=== PATIENT | male | born 2000 | race Caucasian/White ===

== ENCOUNTER 2022-11-30 20:41 | Inpatient (IN) ==
--- NOTE | 2022-11-30 21:08 | Emergency Department Note ---
Impression & Plan Suicidal ideation ED Provider Note NAME: ROLDAN Salvador O AGE: 22 SEX: M : 2000 ARRIVES VIA: [employer] INFORMANT: [Patient] ED PROVIDER(S): [Faraz Stearns MD] CHIEF COMPLAINT: Mental health evaluation HISTORY OF PRESENT ILLNESS: The patient is a 22-year-old male who was brought by police for a mental health evaluation. The patient has an appointment with his psychologist tomorrow. He sent some emails to the psychologist today indicating that he wanted to kill himself. The patient states that it was a poor choice of words as he just feels hopeless and feels like nothing seems to be helping him. He does not have any intent to harm himself though, he has no plan. Patient states that he is upset that his psychologist called the police since he was under the impression that the emails were confidential. The patient admits that he is using Klonopin now for anxiety. He did stop his daily depression/anxiety medication a few weeks ago. He is using the Klonopin as as needed. The patient does not want to stay in the hospital. He does not believe he needs inpatient care. There has been no cough cold or congestion. No fever or chills. Patient denies any increased stressors other than the fact that he stopped his regular prescribed daily medications a few weeks ago. He has an appointment to see a psychiatrist in a week. He did contact [facility]. The patient plans on going home tonight to play video games and rest and then see his psychologist tomorrow as scheduled. PMHx/PSHx: See Below SOCIAL HISTORY: See Below. PHYSICAL EXAM: GENERAL: Patient is in no acute distress. HEENT: No acute trauma, normocephalic atraumatic, mucous membranes moist, no nasal congestion. NECK: No stridor, no adenopathy, no meningismus, trachea is midline. LUNGS: Clear to auscultation bilaterally, no wheeze, no rhonchi, breath sounds equal. HEART: Without murmurs gallops or rubs, regular rate and rhythm. ABDOMEN: Soft, nontender, bowel sounds positive, no peritonitis. EXTREMITIES: No cyanosis or edema, full range of motion of all the joints without pain or difficulty, no signs for acute trauma. NEUROLOGIC: Oriented x 3, no acute motor or sensory deficits, no focal weakness. SKIN: No rash, no jaundice, no diaphoresis. Psychiatric: Flat affect, admits to sending emails talking about killing himself, adamant that he has no plan to harm himself or intent to harm himself. DIFFERENTIAL DIAGNOSIS: Psychosis, depression, anxiety, suicidality, electrolyte imbalance, infection, among others. EMERGENCY DEPARTMENT COURSE/PROCEDURES: Prior/Outside records reviewed: None MEDICAL DECISION MAKING: There is no leukocytosis or concerning anemia. There is a normal platelet count. No renal failure or significant electrolyte abnormality. No concerning liver enzyme elevation. The patient appeared to be in a euthyroid state. Urinalysis did not show findings of infection. Aspirin, Tylenol and alcohol levels were undetectable. Urine tox was negative. COVID test was negative. On exam, the patient admitted to some suicidal ideation but denied intent. He had a flattened affect. He admitted to feeling hopeless. The patient was felt medically clear. He was seen by psychiatry case management. The patient could not plan for safety. A 302 petition was initiated by psychiatry case management. I did sign the medical portion as I do think the patient is at risk for self-harm. He is unable to plan for safety and things have escalated to the point where he was sending emails to his psychologist today talking about suicide. Patient received oral Ativan and oral hydroxyzine. He then received a dose of oral Haldol and oral Ativan. The medications given were to help with his anxiety and to help with sleep/rest. Patient is being evaluated by our psychiatry service, [facility] He may qualify for admission to this facility. At the present time, the patient's disposition is pending. The case has been assumed by Dr. Chand at the change of shift. DISPOSITION: Currently still an ED patient. Past Med/Surg History Medical History Depression Social History Smoking Status: Never smoker Feels Safe at Home: Yes Gender Identity: Male Results & Data (ED) Vital Signs Vital Signs - 24 hr 11/30/22 20:29 11/30/22 21:35 Temperature 36.8 C Temperature Source Oral Pulse Rate [Finger] 100 H Respiratory Rate 16 Blood Pressure [Left Arm] 130/76 Blood Pressure Mean [Left Arm] 94 Pulse Oximetry 96 Sepsis New/Unexplained Change in Mental Status No Sepsis Action Taken by Nursing No Action Required Home Medications Current Medication List: was personally reviewed by me Laboratory Data Attestation: I reviewed the patient's lab results. 11/30/22 21:28 11/30/22 21:28 Lab Results 11/30/22 11/30/22 11/30/22 Range/Units 21:28 21:28 21:28 WBC 7.30 (4.8-10.8) K/ul RBC 5.45 (4.70-6.10) M/uL Hgb 16.0 (14.0-18.0) g/dl Hct 45.0 (42.0-52.0) % MCV 82.6 (80.0-100.0) fL MCH 29.4 (25.0-34.0) pg MCHC 35.6 (32.0-36.0) g/dL RDW Std Deviation 36.3 L (36.4-46.3) fL RDW Coeff of Deepak 12.1 (11.5-14.5) % Plt Count 246 (130-400) K/uL MPV 10.1 (9.4-12.4) fL Immature Gran % (Auto) 0.4 % Neut % (Auto) 61.0 % Lymph % (Auto) 28.4 % [place] % (Auto) 8.6 % Eos % (Auto) 1.2 % Baso % (Auto) 0.4 % Neut # (Auto) 4.45 (1.40-6.50) K/uL Lymph # (Auto) 2.07 (1.2-3.4) K/uL [place] # (Auto) 0.63 H (0.11-0.59) K/uL Eos # (Auto) 0.09 (0-0.50) K/uL Baso # (Auto) 0.03 (0-0.2) K/uL Immature Gran # (Auto) 0.03 (0.01-0.20) K/uL Sodium 139 (136-145) mmol/L Potassium 4.1 (3.5-5.1) mmol/L Chloride 106 (98-107) mmol/L Carbon Dioxide 27 (21-32) mmol/L Anion Gap 6 (3-11) BUN 12 (6-23) mg/dl Creatinine 0.85 (0.6-1.4) mg/dl Est Cr Clr Drug Dosing 126.8 ml/min Est GFR ( Amer) 141.3 ml/min Est GFR (Non-Af Amer) 122.0 ml/min BUN/Creatinine Ratio 14.1 (10-20) Glucose 119 H (70-99(Fasting)) mg/dl Calcium 9.1 (8.6-10.3) mg/dl Total Bilirubin 0.4 (0.2-1.0) mg/dl AST 28 (13-39) U/L ALT 23 (7-52) U/L Alkaline Phosphatase 96 (34-104) U/L Total Protein 6.7 (6.0-8.3) gm/dl Albumin 4.3 (3.4-5.0) gm/dl Globulin 2.4 L (2.5-4.0) gm/dl Albumin/Globulin Ratio 1.8 (0.9-2) TSH 3.823 (0.300-4.500) uIu/ml Urine Color Urine Appearance (Clear) Urine pH (4.5-7.5) Ur Specific [place] (1.000-1.030) Urine Protein (Negative) Urine Glucose (UA) (Negative) Urine Ketones (Negative) Urine Blood (Negative) Urine Nitrite (Negative) Urine Bilirubin (Negative) Urine Urobilinogen (Negative) Ur Leukocyte Esterase (Negative) Salicylates (3.0-30) mg/dl Urine Opiates Screen (Neg) Ur Methadone, Qual (Neg) Acetaminophen (10-30) ug/ml Urine Barbiturates (Neg) Ur Phencyclidine (PCP) (Neg) U Amphetamin/Meth Scrn (Neg) MDMA (Ecstasy) Screen (Neg) U Benzodiazepines Scrn (Neg) Ur Cocaine Metabolite (Neg) U Marijuana (THC) Screen (Neg) Ethyl Alcohol mg/dL (<10.0) mg/dl SARS-CoV-2, RNA, NAAT (NEGATIVE) 11/30/22 11/30/22 11/30/22 Range/Units 21:28 21:28 21:28 WBC (4.8-10.8) K/ul RBC (4.70-6.10) M/uL Hgb (14.0-18.0) g/dl Hct (42.0-52.0) % MCV (80.0-100.0) fL MCH (25.0-34.0) pg MCHC (32.0-36.0) g/dL RDW Std Deviation (36.4-46.3) fL RDW Coeff of Deepak (11.5-14.5) % Plt Count (130-400) K/uL MPV (9.4-12.4) fL Immature Gran % (Auto) % Neut % (Auto) % Lymph % (Auto) % [place] % (Auto) % Eos % (Auto) % Baso % (Auto) % Neut # (Auto) (1.40-6.50) K/uL Lymph # (Auto) (1.2-3.4) K/uL [place] # (Auto) (0.11-0.59) K/uL Eos # (Auto) (0-0.50) K/uL Baso # (Auto) (0-0.2) K/uL Immature Gran # (Auto) (0.01-0.20) K/uL Sodium (136-145) mmol/L Potassium (3.5-5.1) mmol/L Chloride (98-107) mmol/L Carbon Dioxide (21-32) mmol/L Anion Gap (3-11) BUN (6-23) mg/dl Creatinine (0.6-1.4) mg/dl Est Cr Clr Drug Dosing ml/min Est GFR ( Amer) ml/min Est GFR (Non-Af Amer) ml/min BUN/Creatinine Ratio (10-20) Glucose (70-99(Fasting)) mg/dl Calcium (8.6-10.3) mg/dl Total Bilirubin (0.2-1.0) mg/dl AST (13-39) U/L ALT (7-52) U/L Alkaline Phosphatase (34-104) U/L Total Protein (6.0-8.3) gm/dl Albumin (3.4-5.0) gm/dl Globulin (2.5-4.0) gm/dl Albumin/Globulin Ratio (0.9-2) TSH (0.300-4.500) uIu/ml Urine Color Urine Appearance (Clear) Urine pH (4.5-7.5) Ur Specific [place] (1.000-1.030) Urine Protein (Negative) Urine Glucose (UA) (Negative) Urine Ketones (Negative) Urine Blood (Negative) Urine Nitrite (Negative) Urine Bilirubin (Negative) Urine Urobilinogen (Negative) Ur Leukocyte Esterase (Negative) Salicylates < 3.0 L (3.0-30) mg/dl Urine Opiates Screen (Neg) Ur Methadone, Qual (Neg) Acetaminophen < 3 L (10-30) ug/ml Urine Barbiturates (Neg) Ur Phencyclidine (PCP) (Neg) U Amphetamin/Meth Scrn (Neg) MDMA (Ecstasy) Screen (Neg) U Benzodiazepines Scrn (Neg) Ur Cocaine Metabolite (Neg) U Marijuana (THC) Screen (Neg) Ethyl Alcohol mg/dL < 10.0 (<10.0) mg/dl SARS-CoV-2, RNA, NAAT NEGATIVE (NEGATIVE) 11/30/22 11/30/22 Range/Units 22:38 22:38 WBC (4.8-10.8) K/ul RBC (4.70-6.10) M/uL Hgb (14.0-18.0) g/dl Hct (42.0-52.0) % MCV (80.0-100.0) fL MCH (25.0-34.0) pg MCHC (32.0-36.0) g/dL RDW Std Deviation (36.4-46.3) fL RDW Coeff of Deepak (11.5-14.5) % Plt Count (130-400) K/uL MPV (9.4-12.4) fL Immature Gran % (Auto) % Neut % (Auto) % Lymph % (Auto) % [place] % (Auto) % Eos % (Auto) % Baso % (Auto) % Neut # (Auto) (1.40-6.50) K/uL Lymph # (Auto) (1.2-3.4) K/uL [place] # (Auto) (0.11-0.59) K/uL Eos # (Auto) (0-0.50) K/uL Baso # (Auto) (0-0.2) K/uL Immature Gran # (Auto) (0.01-0.20) K/uL Sodium (136-145) mmol/L Potassium (3.5-5.1) mmol/L Chloride (98-107) mmol/L Carbon Dioxide (21-32) mmol/L Anion Gap (3-11) BUN (6-23) mg/dl Creatinine (0.6-1.4) mg/dl Est Cr Clr Drug Dosing ml/min Est GFR ( Amer) ml/min Est GFR (Non-Af Amer) ml/min BUN/Creatinine Ratio (10-20) Glucose (70-99(Fasting)) mg/dl Calcium (8.6-10.3) mg/dl Total Bilirubin (0.2-1.0) mg/dl AST (13-39) U/L ALT (7-52) U/L Alkaline Phosphatase (34-104) U/L Total Protein (6.0-8.3) gm/dl Albumin (3.4-5.0) gm/dl Globulin (2.5-4.0) gm/dl Albumin/Globulin Ratio (0.9-2) TSH (0.300-4.500) uIu/ml Urine Color Yellow Urine Appearance Clear (Clear) Urine pH 8.5 H (4.5-7.5) Ur Specific [place] 1.014 (1.000-1.030) Urine Protein Negative (Negative) Urine Glucose (UA) Negative (Negative) Urine Ketones Negative (Negative) Urine Blood Negative (Negative) Urine Nitrite Negative (Negative) Urine Bilirubin Negative (Negative) Urine Urobilinogen Negative (Negative) Ur Leukocyte Esterase Negative (Negative) Salicylates (3.0-30) mg/dl Urine Opiates Screen Neg (Neg) Ur Methadone, Qual Neg (Neg) Acetaminophen (10-30) ug/ml Urine Barbiturates Neg (Neg) Ur Phencyclidine (PCP) Neg (Neg) U Amphetamin/Meth Scrn Neg (Neg) MDMA (Ecstasy) Screen Neg (Neg) U Benzodiazepines Scrn Neg (Neg) Ur Cocaine Metabolite Neg (Neg) U Marijuana (THC) Screen Neg (Neg) Ethyl Alcohol mg/dL (<10.0) mg/dl SARS-CoV-2, RNA, NAAT (NEGATIVE) Administered Medications Discontinued Medications Haloperidol (Haloperidol 5 Mg Tab) 5 mg PO NOW STA Stop: 12/01/22 00:46 Last Admin: 12/01/22 00:55 Dose: 5 mg Documented By: AB Hydroxyzine HCl (Hydroxyzine Hcl 25 Mg Tab) 50 mg PO NOW STA Stop: 11/30/22 23:27 Last Admin: 11/30/22 23:32 Dose: 50 mg Documented By: AB Lorazepam (Lorazepam 1 Mg Tab) 2 mg SL NOW STA Stop: 11/30/22 22:44 Last Admin: 11/30/22 22:49 Dose: 2 mg Documented By: KELLY Lorazepam (Lorazepam 1 Mg Tab) 1 mg SL NOW STA Stop: 12/01/22 00:46 Last Admin: 12/01/22 00:55 Dose: 1 mg Documented By: Discharge Plan Visit Data Chief Complaint: Mental Health Evaluation Stated Complaint: 201 ED Provider: Faraz Stearns Discharge Problem: Suicidal ideation Patient Disposition: Still a Patient Condition: Good Forms Stand Alone Forms: My [facility], Suicide Prevention Resources Referrals Referrals: PCP,NO [Physician] -
[2022-11-30 22:04] LABS: Basophils # (auto) 0.03 K/uL (0-0.2); Basophils % (auto) 0.4 %; Eosinophils # (auto) 0.09 K/uL (0-0.50); Eosinophils % (auto) 1.2 %; Immature Granulocytes # (auto) 0.03 K/uL (0.01-0.20); Immature Granulocytes % (auto) 0.4 %; Lymphocytes # (auto) 2.07 K/uL (1.2-3.4); Lymphocytes % (auto) 28.4 %; Mean Corpuscular Hemoglobin 29.4 pg (25.0-34.0); Mean Corpuscular Hgb Conc 35.6 g/dL (32.0-36.0); Mean Corpuscular Volume 82.6 fL (80.0-100.0); Mean Platelet Volume 10.1 fL (9.4-12.4); Monocytes # (auto) 0.63 K/uL (0.11-0.59); Monocytes % (auto) 8.6 %; Neutrophils # (auto) 4.45 K/uL (1.40-6.50); Platelet Count 246 K/uL (130-400); RDW Coefficient of Variation 12.1 % (11.5-14.5); RDW Standard Deviation 36.3 fL (36.4-46.3); Red Blood Count 5.45 M/uL (4.70-6.10)
[2022-11-30 22:10] LABS: Albumin Globulin Ratio 1.8 (0.9-2); Albumin Level 4.3 gm/dl (3.4-5.0); BUN Creatinine Ratio 14.1 (10-20); Bilirubin,Total 0.4 mg/dl (0.2-1.0); Calcium 9.1 mg/dl (8.6-10.3); Creatinine Clr Calc Pharmacy 126.8 ml/min; Est GFR (African American) 141.3 ml/min; Globulin 2.4 gm/dl (2.5-4.0); Potassium 4.1 mmol/L (3.5-5.1); Total Protein 6.7 gm/dl (6.0-8.3)
[2022-11-30 22:24] LABS: Acetaminophen < 3 ug/ml (10-30); Salicylate < 3.0 mg/dl (3.0-30)
[2022-11-30] MEDS ORDERED: LORazepam 1 MG TAB SL STA (22:43)
[2022-11-30 23:17] LABS: Appearance Urine Clear (Clear); Bilirubin Urine Negative (Negative); Blood Urine Negative (Negative); Color Urine Yellow; Glucose Urine UA Negative (Negative); Ketones Urine Negative (Negative); Leukocyte Esterase Urine Negative (Negative); Nitrite Urine Negative (Negative); Protein Urine Negative (Negative); Specific Gravity Urine 1.014 (1.000-1.030); Urobilinogen Urine Negative (Negative); pH Urine 8.5 (4.5-7.5)
[2022-11-30] MEDS ORDERED: hydrOXYzine HCl 25 MG TAB PO STA (23:26)
[2022-11-30 23:39] LABS: Amphetamines+Metham, Urine Neg (Neg); Barbiturates, Urine Neg (Neg); Benzodiazepine, Urine Neg (Neg); Cocaine, Urine Neg (Neg); MDMA (Ecstacy), Urine Neg (Neg); Methadone, Urine Neg (Neg); Opiate, Urine Neg (Neg); Phencyclidine, Urine Neg (Neg)
[2022-12-01] MEDS ORDERED: haloperidoL 5 MG TAB PO STA (00:45)
[2022-12-01] MEDS ORDERED: LORazepam 1 MG TAB SL STA (00:45)
--- NOTE | 2022-12-01 02:01 | Emergency Department Note ---
ED Visit Note Date and Time: 12/01/2022 0130 Interval History: Sign out received from Dr. Stearns who reviewed details of the encounter. Patient was pending inpatient admission on a 302. Patient was evaluated by the ED psychiatric leather case finisher. [facility] staff have also evaluated the patient for bed placement Disposition: The patient has been accepted to [facility] is an involuntary commitment .
[2022-12-01] MEDS ORDERED: ALUMINUM/MAGNESIUM SUSP 30 ML UDC PO PRN (03:53)
[2022-12-01] MEDS ORDERED: SODIUM CHLORIDE 0.65% NA SOLN 45 ML (OCEAN) PRN (03:53)
[2022-12-01] MEDS ORDERED: ACETAMINOPHEN 325 MG TAB PO PRN (03:53)
[2022-12-01] MEDS ORDERED: hydrOXYzine HCl 25 MG TAB PO PRN (03:53)
[2022-12-01] MEDS ORDERED: MAGNESIUM HYDROXIDE SUSP 30 ML UDC PO PRN (03:53)
[2022-12-01] MEDS ORDERED: BISMUTH SUBSALICYLATE LIQD 236 ML PO PRN (03:53)
[2022-12-01] MEDS: Patient's ALLERGY Info needs ENTERED SCH ×4 (04:44→04:56)
--- NOTE | 2022-12-01 16:36 | History & Physical ---
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 Diagnostically consistent with major depressive disorder with anxious distress as well as possible OCD component vs ruminations and likely cluster B traits. He is deemed in need of psychiatric hospitalization for diagnostic clarification, safety and stabilization, medication management and development of further coping skills. Discussed medication treatment options in detail including SSRI, SNRI, antipsychotics, Wellbutrin. Discussed risks, benefits and alternatives. Patient would like to start and consented to Wellbutrin for depression. Reviewed side effects including but not limited to: elevated HR, elevated BP, lowered seizure threshold, weight loss, insomnia and counseled on black box warning of potential for emergence of or increased SI and need to let staff know should this occur or should they feel unsafe. Also discussed importance of seeking emergency care fo llowing discharge if this side effect occurs in the future. MNPR due to significant psychic distress in the ED and ongoing social isolation/not felt able to tolerate a roommate (1) Recurrent severe major depressive disorder with anxiety: (2) Suicidal ideation: Plan 12/01/2022: The patient was admitted to the [facility] ([facility]) on q15 min checks (behavioral with suicide precautions) for safety. The patient will participate in group, recreational, and milieu therapies and will be offered additional individual and family sessions as clinically appropriate. -Start Wellbutrin XL 150mg qd tomorrow Inventory Assets Strengths: supportive relationships, outpatient therapy, housing, student life coordinator Needs: safety and stabilization, medication adjustment, additional coping skills Suicide Risk Level Suicide Risk Level: High-Moderate (q15 min suicide checks) (severe depression with SI prior to admission but feels safe in the hospital, able to safety contract and agrees to let nursing/staff know should they develop plan, intent or feel unable to remain safe.) Suicide Risk Level Comments: Risk Factors Assessment Male: Yes : No Do You Have Access To A Gun?: No Health Problems: No Mental Health Diagnoses: Yes Substance Use Disorders: No Previous Attempt: No Family History of Suicide: Yes Previous Psychiatric Hospitalization: No Hopelessness: Yes Protective Factors Assessment Employed: No Stable Relationships: Yes Supportive Family: Yes Good Rapport with Provider: Yes Psychiatric History Identifying Data ROLDAN ADAMSON is a 22-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 Chief Complaint "I tried to be as clear as possible that I'm in intense agony and I can't live like this so I used explicit language". History of Present Illness Roldan presented to the hospital via police after emailing his psychologist concerning statements regarding suicidal ideation and intent. Apparently the emails he sent stated: "had the most intense day. Can't do it anymore. Having strong urges to kill himself and desperate" and another stating "I need to kill myself". He describes a long history of depression that has worsened over the last few months with anhedonia, decreased motivation, helplessness, hopelessness, decreased energy, increased sleep, and poor concentration. He experiences chronic SI and states if he could "push a button and I would" but expands that "I would love to kill myself but I can't do that to my family and I won't ever". He also describes a lot of ruminations about a past girlfriend who broke up with him three years ago. He feels like until he can move past this he will never feel better. He identifies stressors including not being able to practice Cello enough due to his difficulty getting out of bed in the morning and low motivation and social isolation. He had been prescribed psychiatric medications by his provider in [place] including escitalopram, clonazepam (only uses this about once every 2-3 months for severe anxiety), Ambien and risperidone. However, he stopped these about two weeks ago as he felt they were making him more tired and weren't helping with any of his psychiatric symptoms. He scheduled himself for an upcoming psychiatry appointment at [place] to try to look into different medication options. Psychiatric ROS notable for no current nor history of symptoms of blayne, psychosis, nor eating disorder. History of self-harm via punching himself in the head. History of body dysmorphia. Past Psychiatric History Current Psychiatric Diagnosis: MDD Outpatient Services: therapist Dr. Pruett via teletherapy for last 1.5 months, scheduled at [facility] later this month Previous Psych Admissions: denies Do You Have Access To A Gun?: No History of Previous Suicide Attempt: No Past Medication Trials: escitalopram, clonazepam (only uses this about once every 2-3 months for severe anxiety), Ambien and risperidone (states this was for depression augmentation and obsessional thoughts) Past Head Trauma/Neuro History History of Concussion/Seizure: No Allergies Allergy/AdvReac Type Severity Reaction Status Date / Time No Known Allergies Allergy Unverified 12/01/22 19:18 Family History Family History of: Depression (dad) and Suicide Completion (distant cousin of a grandfather) Family Mental Health History Comment: states his father "has thoughts like him" but no known diagnoses Alcohol History Hx of Alcohol Use Over the Past 12 Months: No AUDIT Total Score: 0 rare use only after a concert socially to celebrate Smoking Use Have You Smoked or Used Tobacco Products in the Last 30 Days: No Smoking Status: Never smoker Substance History Hx of Prescription Med Misuse Over the Past 12 Months: No Hx of Over the Counter Med Misuse Over the Past 12 Months: No Hx of Inhalent Misuse Over the Past 12 Months: No Hx of Organic Substance Use Over the Past 12 Months: No Hx of Illegal Substances/Street Drug Use Over Past 12 Months: No Problems as a Result of Past Substance Use: None Identified Personal History Living Arrangements: Apartment Living Arrangements Comments: will only be living there for another 2 months; has already secured next apartment Highest Grade Completed: Graduate School Highest Grade Completed Comment: currently enrolled in grad program studying RegisterPatient Employment Status: Student Marital Status: Single Number Of Children: 0 Beliefs That Will Affect Care: None Current Legal Problems: No Hx Legal Problems: No Patient History Medical History Depression Social History Smoking Status: Never smoker Communication Ability: Effective Mirror Department Supervisor Required: No Beliefs That Will Affect Care: None Feels Safe at Home: Yes Gender Identity: Male Assistive Devices: None Review of Systems Review of Systems: All systems reviewed & are unremarkable except as noted in HPI & below Physical Exam Psychiatric: Orientation: alert and oriented x 3 Apperance: appropriately dressed and + disheveled Eye Contact: + fair eye contact Motor Behavior: no abnormal motor movements Speech: + abnormal rate/rhythm/volume of speech (latent, slowed) Affect: + depressed affect and + flat affect Mood: + depressed mood and + anxious mood Thought Process: + circumstantial thought process Thought Content: reality based without delusions Suicidal Thoughts: denies suicidal plan and denies suicidal intent; + reports suicidal thoughts (chronic) Homicidal Thoughts: denies homicidal thoughts Hallucinations: no auditory hallucinations and no visual hallucinations Cognition: recent memory grossly intact, remote memory grossly intact, attention grossly intact and language grossly intact Estimated Intelligence: consistent with education level Insight: + limited insight Judgment: + limited judgement Vital Signs (Past 24 Hours): Last Vital Signs Temp 36.4 C L 12/01/22 03:30 Pulse 71 12/01/22 03:30 Resp 18 12/01/22 03:30 BP 113/76 12/01/22 03:30 Pulse Ox 99 12/01/22 03:30 O2 Del Method Room Air 12/01/22 03:45 Exam Statement: A physical exam was performed in the ED by Dr. Stearns for the purposes of medical clearance. I accept that physical as correct and adequate for the purposes of the inpatient physical exam. Results & Data ([facility]) Laboratory Results Laboratory Results - last 24 hr 11/30/22 11/30/22 11/30/22 21:28 21:28 21:28 WBC 7.30 RBC 5.45 Hgb 16.0 Hct 45.0 MCV 82.6 MCH 29.4 MCHC 35.6 RDW Std Deviation 36.3 L RDW Coeff of Deepak 12.1 Plt Count 246 MPV 10.1 Immature Gran % (Auto) 0.4 Neut % (Auto) 61.0 Lymph % (Auto) 28.4 [place] % (Auto) 8.6 Eos % (Auto) 1.2 Baso % (Auto) 0.4 Neut # (Auto) 4.45 Lymph # (Auto) 2.07 [place] # (Auto) 0.63 H Eos # (Auto) 0.09 Baso # (Auto) 0.03 Immature Gran # (Auto) 0.03 Sodium 139 Potassium 4.1 Chloride 106 Carbon Dioxide 27 Anion Gap 6 BUN 12 Creatinine 0.85 Est Cr Clr Drug Dosing 126.8 Est GFR ( Amer) 141.3 Est GFR (Non-Af Amer) 122.0 BUN/Creatinine Ratio 14.1 Glucose 119 H Calcium 9.1 Total Bilirubin 0.4 AST 28 ALT 23 Alkaline Phosphatase 96 Total Protein 6.7 Albumin 4.3 Globulin 2.4 L Albumin/Globulin Ratio 1.8 TSH 3.823 Urine Color Urine Appearance Urine pH Ur Specific Ira Urine Protein Urine Glucose (UA) Urine Ketones Urine Blood Urine Nitrite Urine Bilirubin Urine Urobilinogen Ur Leukocyte Esterase Salicylates Urine Opiates Screen Ur Methadone, Qual Acetaminophen Urine Barbiturates Ur Phencyclidine (PCP) U Amphetamin/Meth Scrn MDMA (Ecstasy) Screen U Benzodiazepines Scrn Ur Cocaine Metabolite U Marijuana (THC) Screen Ethyl Alcohol mg/dL SARS-CoV-2, RNA, NAAT 11/30/22 11/30/22 11/30/22 21:28 21:28 21:28 WBC RBC Hgb Hct MCV MCH MCHC RDW Std Deviation RDW Coeff of Deepak Plt Count MPV Immature Gran % (Auto) Neut % (Auto) Lymph % (Auto) [place] % (Auto) Eos % (Auto) Baso % (Auto) Neut # (Auto) Lymph # (Auto) [place] # (Auto) Eos # (Auto) Baso # (Auto) Immature Gran # (Auto) Sodium Potassium Chloride Carbon Dioxide Anion Gap BUN Creatinine Est Cr Clr Drug Dosing Est GFR ( Amer) Est GFR (Non-Af Amer) BUN/Creatinine Ratio Glucose Calcium Total Bilirubin AST ALT Alkaline Phosphatase Total Protein Albumin Globulin Albumin/Globulin Ratio TSH Urine Color Urine Appearance Urine pH Ur Specific Ira Urine Protein Urine Glucose (UA) Urine Ketones Urine Blood Urine Nitrite Urine Bilirubin Urine Urobilinogen Ur Leukocyte Esterase Salicylates < 3.0 L Urine Opiates Screen Ur Methadone, Qual Acetaminophen < 3 L Urine Barbiturates Ur Phencyclidine (PCP) U Amphetamin/Meth Scrn MDMA (Ecstasy) Screen U Benzodiazepines Scrn Ur Cocaine Metabolite U Marijuana (THC) Screen Ethyl Alcohol mg/dL < 10.0 SARS-CoV-2, RNA, NAAT NEGATIVE 11/30/22 11/30/22 22:38 22:38 WBC RBC Hgb Hct MCV MCH MCHC RDW Std Deviation RDW Coeff of Deepak Plt Count MPV Immature Gran % (Auto) Neut % (Auto) Lymph % (Auto) [place] % (Auto) Eos % (Auto) Baso % (Auto) Neut # (Auto) Lymph # (Auto) [place] # (Auto) Eos # (Auto) Baso # (Auto) Immature Gran # (Auto) Sodium Potassium Chloride Carbon Dioxide Anion Gap BUN Creatinine Est Cr Clr Drug Dosing Est GFR ( Amer) Est GFR (Non-Af Amer) BUN/Creatinine Ratio Glucose Calcium Total Bilirubin AST ALT Alkaline Phosphatase Total Protein Albumin Globulin Albumin/Globulin Ratio TSH Urine Color Yellow Urine Appearance Clear Urine pH 8.5 H Ur Specific Ira 1.014 Urine Protein Negative Urine Glucose (UA) Negative Urine Ketones Negative Urine Blood Negative Urine Nitrite Negative Urine Bilirubin Negative Urine Urobilinogen Negative Ur Leukocyte Esterase Negative Salicylates Urine Opiates Screen Neg Ur Methadone, Qual Neg Acetaminophen Urine Barbiturates Neg Ur Phencyclidine (PCP) Neg U Amphetamin/Meth Scrn Neg MDMA (Ecstasy) Screen Neg U Benzodiazepines Scrn Neg Ur Cocaine Metabolite Neg U Marijuana (THC) Screen Neg Ethyl Alcohol mg/dL SARS-CoV-2, RNA, NAAT Current Inpatient Medications Current Inpatient Medications: Current Inpatient Medications Acetaminophen (Acetaminophen 325 Mg Tab) 650 mg PO Q4H PRN PRN Reason: Headache or Minor Fever Stop: 12/31/22 03:52 Al Hydrox/Mg Hydrox/Simethicone (Aluminum/Magnesium Susp 30 Ml Udc) 30 ml PO Q4H PRN PRN Reason: GI Upset Stop: 12/31/22 03:52 Bismuth Subsalicylate (Bismuth Subsalicylate Liqd 236 Ml) 15 ml PO PRN PRN PRN Reason: Loose Stool Stop: 12/31/22 03:52 Hydroxyzine HCl (Hydroxyzine Hcl 25 Mg Tab) 50 mg PO HSZ PRN PRN Reason: Insomnia Stop: 12/31/22 03:52 Hydroxyzine HCl (Hydroxyzine Hcl 25 Mg Tab) 25 mg PO Q4H PRN PRN Reason: Anxiety Stop: 12/31/22 03:52 Magnesium Hydroxide (Magnesium Hydroxide Susp 30 Ml Udc) 30 ml PO DAILY PRN PRN Reason: Constipation Stop: 12/31/22 03:52 Sodium Chloride (Sodium Chloride 0.65% Na Soln 45 Ml ([place])) 1 - 2 sprays NA PRN PRN PRN Reason: Nasal Dryness/Congestion Stop: 12/31/22 03:52
[2022-12-01] MEDS: hydrOXYzine HCl 25 MG TAB PO PRN (23:26)
[2022-12-02] MEDS: hydrOXYzine HCl 25 MG TAB PO PRN ×2 (00:19→23:14)
[2022-12-02] MEDS: buPROPion XL 150 MG TABCR PO SCH (10:11)
--- NOTE | 2022-12-02 14:11 | Psychiatric Progress Note ---
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 Diagnostically consistent with major depressive disorder with anxious distress as well as possible OCD component vs ruminations and likely cluster B traits. He is deemed in need of psychiatric hospitalization for diagnostic clarification, safety and stabilization, medication management and development of further coping skills. MNPR due to significant psychic distress in the ED and ongoing periods of rumination/not felt able to tolerate a roommate 12/02/2022: Ongoing depression though minimizing SI. Tolerating initial of Wellbutrin. He would like to start something else to help with obsessional/ruminative thoughts. Discussed medication treatment options in detail. Discussed risks, benefits and alternatives. Patient would like to start and consented to fluoxetine for obsessional thoughts, depression. Reviewed side effects including but not limited to: GI, FITCH, sexual side effects, and counseled on black box warning of potential for emergence of or increased SI and need to let staff know should this occur or should they feel unsafe. Also discussed importance of seeking emergency care following discharge if this side effect occurs in the future. (1) Recurrent severe major depressive disorder with anxiety: (2) Suicidal ideation: Plan 12/02/2022: Continue WEllbutrin XL 150mg qd, start fluoxetine 20mg tomorrow morning, he will utilize Vistaril prn for insomnia as this was helpful last night 12/01/2022: The patient was admitted to the [facility] on q15 min checks (behavioral with suicide precautions) for safety. The patient will participate in group, recreational, and milieu therapies and will be offered additional individual and family sessions as clinically appropriate. 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 Needs: safety and stabilization, medication adjustment, additional coping skills Suicide Risk Level Suicide Risk Level: High-Moderate (q15 min suicide checks) (severe depression with SI prior to admission but feels safe in the hospital, able to safety contract and agrees to let nursing/staff know should they develop plan, intent or feel unable to remain safe.) Suicide Risk Level Comments: Risk Factors Assessment Male: Yes : No Do You Have Access To A Gun?: No Health Problems: No Mental Health Diagnoses: Yes Substance Use Disorders: No Previous Attempt: No Family History of Suicide: Yes Previous Psychiatric Hospitalization: No Hopelessness: Yes Protective Factors Assessment Employed: No Stable Relationships: Yes Supportive Family: Yes Good Rapport with Provider: Yes Interval History Identifying Information ROLDAN ADAMSON is a 22-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 Chief Complaint "Considering everything I'm feeling ok". Review of Systems Sleep Information Total Hours of Sleep: 6 Sleep Comments: Meal Information Percent Meal Consumed - Breakfast: 100 Percent Meal Consumed - Lunch: 100 Percent Meal Consumed - Dinner: 90 Nutrition Comment: Patient sleeping Subjective Subjective Patient was seen & assessed and interval progress reviewed with treatment team nursing and social work. More engaged today with groups. He feels the Wellbutrin made it easier to start his day and feels a bit more energy. Still concerned by his obsessional thoughts as he feels he gets caught thinking about things and cannot stop and this also makes it hard for him to fall asleep. Discussed challenge of past relationship and how during this time he felt happy and hopeful for the first time and that since that relationship ended 3 years ago he cannot move on and lost all hope of the future. However, wants to make sure I understand he doesn't feel suicidal currently stating he sent the emails and said what he said due to "the level of physical agony" but would not have harmed himself. Physical Exam Psychiatric Orientation: alert and oriented x 3 Apperance: appropriately dressed and + disheveled Eye Contact: + fair eye contact Motor Behavior: no abnormal motor movements Speech: normal rate/rhythm/volume of speech Affect: + depressed affect and + anxious affect Mood: + depressed mood and + anxious mood Thought Process: + circumstantial thought process and + perseveration Thought Content: + cognitive distortions, reality based without delusions, + hopelessness, + worthlessness and + loneliness Suicidal Thoughts: denies suicidal plan and denies suicidal intent; + reports suicidal thoughts (chronic) Homicidal Thoughts: denies homicidal thoughts Hallucinations: no auditory hallucinations and no visual hallucinations Cognition: recent memory grossly intact, remote memory grossly intact, attention grossly intact and language grossly intact Estimated Intelligence: consistent with education level Insight: + limited insight Judgment: + limited judgement Vital Signs (Past 24 Hours) Last Vital Signs Temp 36.5 C 12/02/22 06:35 Pulse 74 12/02/22 06:36 Resp 16 12/02/22 06:35 BP 110/75 12/02/22 06:36 Pulse Ox 99 12/01/22 03:30 O2 Del Method Room Air 12/01/22 03:45 Results & Data ([facility]) Current Inpatient Medications Current Inpatient Medications: Current Inpatient Medications Acetaminophen (Acetaminophen 325 Mg Tab) 650 mg PO Q4H PRN PRN Reason: Headache or Minor Fever Stop: 12/31/22 03:52 Al Hydrox/Mg Hydrox/Simethicone (Aluminum/Magnesium Susp 30 Ml Udc) 30 ml PO Q4H PRN PRN Reason: GI Upset Stop: 12/31/22 03:52 Bismuth Subsalicylate (Bismuth Subsalicylate Liqd 236 Ml) 15 ml PO PRN PRN PRN Reason: Loose Stool Stop: 12/31/22 03:52 Bupropion HCl (Bupropion Xl 150 Mg Tabcr) 150 mg PO QAM LAITH Stop: 01/01/23 09:14 Last Admin: 12/02/22 10:11 Dose: 150 mg Hydroxyzine HCl (Hydroxyzine Hcl 25 Mg Tab) 50 mg PO HSZ PRN PRN Reason: Insomnia Stop: 12/31/22 03:52 Last Admin: 12/02/22 00:19 Dose: 50 mg Hydroxyzine HCl (Hydroxyzine Hcl 25 Mg Tab) 25 mg PO Q4H PRN PRN Reason: Anxiety Stop: 12/31/22 03:52 Magnesium Hydroxide (Magnesium Hydroxide Susp 30 Ml Udc) 30 ml PO DAILY PRN PRN Reason: Constipation Stop: 12/31/22 03:52 Sodium Chloride (Sodium Chloride 0.65% Na Soln 45 Ml ([place])) 1 - 2 sprays NA PRN PRN PRN Reason: Nasal Dryness/Congestion Stop: 12/31/22 03:52 Mental Health & Subst Abuse Tx Psychiatrist [facility] Date Of Appointment With Psychiatric Provider: 12/14/2022 Time of Appointment with Psychiatrist: 1:30pm Psychiatric Appointment Comment: [address] [place] [address] Therapist Name of Therapist: Delio Pruett Therapist's Phone Number: [phone] Date of Therapist Appointment: 12/01/2022 Therapy Appointment Comment: [facility], [facility] [id number], [place] [address] Wedding Photographer Name of Wedding Photographer: None Post Discharge Appointments Primary Care Physician Name Of Family Doctor/PCP: [facility] Primary Care Time of Appointment with PCP: Please follow up as needed Provider Appointment Comment: [facility]
[2022-12-03] MEDS: buPROPion XL 150 MG TABCR PO SCH (08:47)
[2022-12-03] MEDS: FLUoxetine HCL 20 MG CAP PO SCH (08:47)
[2022-12-03] MEDS ORDERED: traZODone HCL 50 MG TAB PO PRN (15:53)
--- NOTE | 2022-12-03 16:03 | Psychiatric Progress Note ---
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 Diagnostically consistent with major depressive disorder with anxious distress as well as possible OCD component vs ruminations and likely cluster B traits. He is deemed in need of psychiatric hospitalization for diagnostic clarification, safety and stabilization, medication management and development of further coping skills. MNPR due to significant psychic distress in the ED and ongoing periods of rumination/not felt able to tolerate a roommate 12/03/2022: Ongoing depression and anxiety and seems to be opening up more as he becomes comfortable with peers and unit. He wants to add a medication to help with his chronic insomnia. Discussed medication treatment options in detail including prazosin vs trazodone vs mirtazapine vs ongoing use of Vistaril. Discussed risks, benefits and alternatives. Patient would like to start and consented to trazodone prn. Reviewed side effects including but not limited to: sedation, increased appetite, priapism. (1) Recurrent severe major depressive disorder with anxiety: (2) Suicidal ideation: Plan 12/03/2022: Start trazodone 50mg HS, continue Wellbutrin XL 150mg qd and started fluoxetine 20mg qd 12/02/2022: Continue Wellbutrin XL 150mg qd, start fluoxetine 20mg tomorrow morning, he will utilize Vistaril prn for insomnia as this was helpful last night 12/01/2022: The patient was admitted to the [facility] ([facility]) on q15 min checks (behavioral with suicide precautions) for safety. The patient will participate in group, recreational, and milieu therapies and will be offered additional individual and family sessions as clinically appropriate. -Start Wellbutrin XL 150mg qd tomorrow Inventory Assets Strengths: supportive relationships, outpatient therapy, housing, pharmacy student Needs: safety and stabilization, medication adjustment, additional coping skills Suicide Risk Level Suicide Risk Level: High-Moderate (q15 min suicide checks) (severe depression with SI prior to admission but feels safe in the hospital, able to safety contract and agrees to let nursing/staff know should they develop plan, intent or feel unable to remain safe.) Suicide Risk Level Comments: Risk Factors Assessment Male: Yes : No Do You Have Access To A Gun?: No Health Problems: No Mental Health Diagnoses: Yes Substance Use Disorders: No Previous Attempt: No Family History of Suicide: Yes Previous Psychiatric Hospitalization: No Hopelessness: Yes Protective Factors Assessment Employed: No Stable Relationships: Yes Supportive Family: Yes Good Rapport with Provider: Yes Interval History Identifying Information ROLDAN ADAMSON is a 22-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 Chief Complaint "I'm feeling more comfortable". Review of Systems Sleep Information Total Hours of Sleep: 4.75 Meal Information Percent Meal Consumed - Breakfast: 100 Percent Meal Consumed - Lunch: 90 Percent Meal Consumed - Dinner: 100 Nutrition Comment: Subjective Subjective Patient was seen & assessed and interval progress reviewed with treatment team nursing and social work. Engaging more with peers, attending groups. At times seems to be slightly unaware of social cues/normal personal space boundaries. States he is feeling less scared about being in the hospital and more comfortable due to connected well with a peer. However states "I also feel disappointed in myself because I still don't have enough coping skills". Had a nightmare last night and woke up which made it hard for him to fall back asleep. He wonders if this could be a side effect from Wellbutrin because previously he developed episodes of waking up and screaming at night while on sertraline. He also feels the Vistaril is not sedating enough to help with sleep and wonders about adding something else. No side effects so far today from first dose of flu oxetine. Physical Exam Psychiatric Orientation: alert and oriented x 3 Apperance: appropriately dressed and appropriately groomed Eye Contact: + fair eye contact Motor Behavior: no abnormal motor movements Speech: normal rate/rhythm/volume of speech Affect: + depressed affect and + anxious affect Mood: + depressed mood and + anxious mood Thought Process: + circumstantial thought process and + perseveration Thought Content: + cognitive distortions, reality based without delusions, + hopelessness, + worthlessness and + loneliness Suicidal Thoughts: denies suicidal plan and denies suicidal intent; + reports suicidal thoughts (chronic intermittent) Homicidal Thoughts: denies homicidal thoughts Hallucinations: no auditory hallucinations and no visual hallucinations Cognition: recent memory grossly intact, remote memory grossly intact, attention grossly intact and language grossly intact Estimated Intelligence: consistent with education level Insight: + limited insight Judgment: + limited judgement Vital Signs (Past 24 Hours) Last Vital Signs Temp 36.5 C 12/03/22 06:38 Pulse 67 12/03/22 06:38 Resp 16 12/03/22 06:38 BP 111/74 12/03/22 06:38 Pulse Ox 99 12/01/22 03:30 O2 Del Method Room Air 12/01/22 03:45 Results & Data ([facility]) Current Inpatient Medications Current Inpatient Medications: Current Inpatient Medications Acetaminophen (Acetaminophen 325 Mg Tab) 650 mg PO Q4H PRN PRN Reason: Headache or Minor Fever Stop: 12/31/22 03:52 Al Hydrox/Mg Hydrox/Simethicone (Aluminum/Magnesium Susp 30 Ml Udc) 30 ml PO Q4H PRN PRN Reason: GI Upset Stop: 12/31/22 03:52 Bismuth Subsalicylate (Bismuth Subsalicylate Liqd 236 Ml) 15 ml PO PRN PRN PRN Reason: Loose Stool Stop: 12/31/22 03:52 Bupropion HCl (Bupropion Xl 150 Mg Tabcr) 150 mg PO QAM LAITH Stop: 01/01/23 09:14 Last Admin: 12/03/22 08:47 Dose: 150 mg Fluoxetine HCl (Fluoxetine Hcl 20 Mg Cap) 20 mg PO QAM LAITH Stop: 01/02/23 08:59 Last Admin: 12/03/22 08:47 Dose: 20 mg Hydroxyzine HCl (Hydroxyzine Hcl 25 Mg Tab) 50 mg PO HSZ PRN PRN Reason: Insomnia Stop: 12/31/22 03:52 Last Admin: 12/02/22 23:14 Dose: 50 mg Hydroxyzine HCl (Hydroxyzine Hcl 25 Mg Tab) 25 mg PO Q4H PRN PRN Reason: Anxiety Stop: 12/31/22 03:52 Magnesium Hydroxide (Magnesium Hydroxide Susp 30 Ml Udc) 30 ml PO DAILY PRN PRN Reason: Constipation Stop: 12/31/22 03:52 Sodium Chloride (Sodium Chloride 0.65% Na Soln 45 Ml ([place])) 1 - 2 sprays NA PRN PRN PRN Reason: Nasal Dryness/Congestion Stop: 12/31/22 03:52 Mental Health & Subst Abuse Tx Psychiatrist Name of Psychiatrist: Elpidio Cortez Psychiatrist's Date Of Appointment With Psychiatric Provider: 12/14/2022 Time of Appointment with Psychiatrist: 1:30pm Psychiatric Appointment Comment: [address] [place] [address] Therapist Name of Therapist: Delio Pruett Therapist's Phone Number: [phone] Date of Therapist Appointment: 12/01/2022 Therapy Appointment Comment: [facility], [facility][note 3] [address], [place] [address] Programmer Operator Numerical Control Name of Programmer Operator Numerical Control: None Post Discharge Appointments Primary Care Physician Name Of Family Doctor/PCP: [facility] Primary Care Time of Appointment with PCP: Please follow up as needed Provider Appointment Comment: [facility]
[2022-12-04] MEDS: hydrOXYzine HCl 25 MG TAB PO PRN (00:48)
[2022-12-04] MEDS: FLUoxetine HCL 20 MG CAP PO SCH (08:47)
[2022-12-04] MEDS: buPROPion XL 150 MG TABCR PO SCH (08:47)
--- NOTE | 2022-12-04 09:07 | Psychiatric Progress Note ---
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 Diagnostically consistent with major depressive disorder with anxious distress as well as possible OCD component vs ruminations and likely cluster B traits. He is deemed in need of psychiatric hospitalization for diagnostic clarification, safety and stabilization, medication management and development of further coping skills. MNPR due to significant psychic distress in the ED and ongoing periods of rumination and significant insomnia 12/04/2022: Depression starting to improve, still with significant anxiety especially related to sleep issues. Discussed medication treatment options in detail. Discussed risks, benefits and alternatives. Patient would like to start and consented to Ambien prn. Reviewed side effects including but not limited to: potential for dangerous sleep behaviors including using items in the kitchen or driving without awareness, addictive potential, dizziness, interactions with other medications and substances which he states understanding of. (1) Recurrent severe major depressive disorder with anxiety: (2) Suicidal ideation: Plan 12/04/2022: Discontinue trazodone. Start Ambien 5mg HS prn. Continue Wellbutrin XL and fluoxetine. 12/03/2022: Start trazodone 50mg HS, continue Wellbutrin XL 150mg qd and started fluoxetine 20mg qd 12/02/2022: Continue Wellbutrin XL 150mg qd, start fluoxetine 20mg tomorrow morning, he will utilize Vistaril prn for insomnia as this was helpful last ni ght 12/01/2022: The patient was admitted to the [facility] ([facility] health unit) on q15 min checks (behavioral with suicide precautions) for safety. The patient will participate in group, recreational, and milieu therapies and will be offered additional individual and family sessions as clinically appropriate. 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 Needs: safety and stabilization, medication adjustment, additional coping skills Suicide Risk Level Suicide Risk Level: Moderate (q15 min suicide checks) (severe depression with SI prior to admission but mood improving, denies current SI, feels safe in the hospital, able to safety contract and agrees to let nursing/staff know should they develop plan, intent or feel unable to remain safe.) Suicide Risk Level Comments: Risk Factors Assessment Male: Yes : No Do You Have Access To A Gun?: No Health Problems: No Mental Health Diagnoses: Yes Substance Use Disorders: No Previous Attempt: No Family History of Suicide: Yes Previous Psychiatric Hospitalization: No Hopelessness: Yes Protective Factors Assessment Employed: No Stable Relationships: Yes Supportive Family: Yes Good Rapport with Provider: Yes Interval History Identifying Information 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 Chief Complaint "I'm worse I had a terrible night". Review of Systems Sleep Information Total Hours of Sleep: 4.5 Sleep Comments: Received Trazodone and later Vistaril for sleep Meal Information Percent Meal Consumed - Breakfast: 100 Percent Meal Consumed - Lunch: 90 Percent Meal Consumed - Dinner: 100 Subjective Subjective Patient was seen & assessed and interval progress reviewed with treatment team nursing and social work. Processed with RN about body dysmorphia. Had significant difficulty falling asleep even with addition of trazodone and then had a lot of nightmares and dreams he describes as stressful, vulnerable and hostile. Reviewed that Wellbutrin and SSRIs can certainly lead to bizarre dreams and potential for nightmares though less common. He would like to go back to [facility] as he previously had awful dreams and tried multiple medications in [place] [facility] and this was the only one that helped. 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 Physical Exam Psychiatric Orientation: alert and oriented x 3 Apperance: appropriately dressed and appropriately groomed Eye Contact: + fair eye contact Motor Behavior: no abnormal motor movements Speech: normal rate/rhythm/volume of speech Affect: + anxious affect Mood: + depressed mood and + anxious mood Thought Process: goal directed thought process and + perseveration Thought Content: + cognitive distortions, reality based without delusions, + worthlessness and + loneliness Suicidal Thoughts: denies suicidal plan and denies suicidal intent; + reports suicidal thoughts (chronic intermittent) Homicidal Thoughts: denies homicidal thoughts Hallucinations: no auditory hallucinations and no visual hallucinations Cognition: recent memory grossly intact, remote memory grossly intact, attention grossly intact and language grossly intact Estimated Intelligence: consistent with education level Insight: + limited insight Judgment: + limited judgement Vital Signs (Past 24 Hours) Last Vital Signs Temp 36.5 C 12/04/22 06:39 Pulse 65 12/04/22 06:40 Resp 16 12/04/22 06:39 BP 132/89 12/04/22 06:40 Pulse Ox 99 12/01/22 03:30 O2 Del Method Room Air 12/01/22 03:45 Results & Data ([facility]) Current Inpatient Medications Current Inpatient Medications: Current Inpatient Medications Acetaminophen (Acetaminophen 325 Mg Tab) 650 mg PO Q4H PRN PRN Reason: Headache or Minor Fever Stop: 12/31/22 03:52 Al Hydrox/Mg Hydrox/Simethicone (Aluminum/Magnesium Susp 30 Ml Udc) 30 ml PO Q4H PRN PRN Reason: GI Upset Stop: 12/31/22 03:52 Bismuth Subsalicylate (Bismuth Subsalicylate Liqd 236 Ml) 15 ml PO PRN PRN PRN Reason: Loose Stool Stop: 12/31/22 03:52 Bupropion HCl (Bupropion Xl 150 Mg Tabcr) 150 mg PO QAM LAITH Stop: 01/01/23 09:14 Last Admin: 12/04/22 08:47 Dose: 150 mg Fluoxetine HCl (Fluoxetine Hcl 20 Mg Cap) 20 mg PO QAM LAITH Stop: 01/02/23 08:59 Last Admin: 12/04/22 08:47 Dose: 20 mg Hydroxyzine HCl (Hydroxyzine Hcl 25 Mg Tab) 50 mg PO HSZ PRN PRN Reason: Insomnia Stop: 12/31/22 03:52 Last Admin: 12/04/22 00:48 Dose: 50 mg Hydroxyzine HCl (Hydroxyzine Hcl 25 Mg Tab) 25 mg PO Q4H PRN PRN Reason: Anxiety Stop: 12/31/22 03:52 Magnesium Hydroxide (Magnesium Hydroxide Susp 30 Ml Udc) 30 ml PO DAILY PRN PRN Reason: Constipation Stop: 12/31/22 03:52 Sodium Chloride (Sodium Chloride 0.65% Na Soln 45 Ml ([place])) 1 - 2 sprays NA PRN PRN PRN Reason: Nasal Dryness/Congestion Stop: 12/31/22 03:52 Trazodone HCl (Trazodone Hcl 50 Mg Tab) 50 mg PO HS PRN PRN Reason: insomnia Stop: 01/02/23 21:59 Last Admin: 12/03/22 23:43 Dose: 50 mg Mental Health & Subst Abuse Tx Psychiatrist Name of Psychiatrist: Elpidio Cortez Psychiatrist's Date Of Appointment With Psychiatric Provider: 12/14/2022 Time of Appointment with Psychiatrist: 1:30pm Psychiatric Appointment Comment: [address] [place] [address] Therapist Name of Therapist: Delio Pruett Therapist's Phone Number: [phone] Date of Therapist Appointment: 12/01/2022 Therapy Appointment Comment: [facility] [address], [place] [address] Die Assembler Name of Die Assembler: None Post Discharge Appointments Primary Care Physician Name Of Family Doctor/PCP: [facility] Primary Care Time of Appointment with PCP: Please follow up as needed Provider Appointment Comment: [facility]
[2022-12-04] MEDS: ZOLPIDEM TARTRATE 5 MG TAB PO PRN (23:22)
[2022-12-05] MEDS: buPROPion XL 150 MG TABCR PO SCH (08:22)
[2022-12-05] MEDS: FLUoxetine HCL 20 MG CAP PO SCH (08:22)
--- NOTE | 2022-12-05 14:08 | Psychiatric Progress Note ---
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 Diagnostically consistent with major depressive disorder with anxious distress as well as possible OCD component vs ruminations and likely cluster B traits. He is deemed in need of psychiatric hospitalization for diagnostic clarification, safety and stabilization, medication management and development of further coping skills. MNPR due to significant psychic distress in the ED and ongoing periods of rumination and significant insomnia 12/05/2022: Mood improving, still having new nightmares with sleep. Insomnia improved with Ambien but still having bad dreams. Discussed options and he consents to prazosin trial for nightmares. Discussed risks, benefits and alternatives. Reviewed side effects including but not limited to: low BP, syncope, dizziness. (1) Recurrent severe major depressive disorder with anxiety: (2) Suicidal ideation: (3) Insomnia: (4) Mixed obsessional thoughts and acts: Plan 12/05/2022: Start prazosin 1mg HS. Continue with Wellbutrin, fluoxetine and Ambien. 12/04/2022: Discontinue trazodone. Start Ambien 5mg HS prn. Continue Wellbutrin XL and fluoxetine. 12/03/2022: Start trazodone 50mg HS, continue Wellbutrin XL 150mg qd and started fluoxetine 20mg qd 12/02/2022: Continue Wellbutrin XL 150mg qd, start fluoxetine 20mg tomorrow morning, he will utilize Vistaril prn for insomnia as this was helpful last night 12/01/2022: The patient was admitted to the [facility] ([facility]) on q15 min checks (behavioral with suicide precautions) for safety. The patient will participate in group, recreational, and milieu therapies and will be offered additional individual and family sessions as clinically appropriate. 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 consultant Needs: safety and stabilization, medication adjustment, additional coping skills Suicide Risk Level Suicide Risk Level: Moderate (q15 min suicide checks) (severe depression with SI prior to admission but mood improving, denies current SI, feels safe in the hospital, able to safety contract and agrees to let nursing/staff know should they develop plan, intent or feel unable to remain safe.) Suicide Risk Level Comments: Risk Factors Assessment Male: Yes : No Do You Have Access To A Gun?: No Health Problems: No Mental Health Diagnoses: Yes Substance Use Disorders: No Previous Attempt: No Family History of Suicide: Yes Previous Psychiatric Hospitalization: No Hopelessness: Yes Protective Factors Assessment Employed: No Stable Relationships: Yes Supportive Family: Yes Good Rapport with Provider: Yes Interval History Identifying Information 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 Chief Complaint "I still had vivid nightmares". Review of Systems Sleep Information Total Hours of Sleep: 5.5 Sleep Comments: Received Ambien for sleep Meal Information Percent Meal Consumed - Breakfast: 100 Percent Meal Consumed - Lunch: 75 Percent Meal Consumed - Dinner: 100 Subjective Subjective Patient was seen & assessed and interval progress reviewed with treatment team nursing and social work. Continues to feel his mood, concentration and energy are improving but had more nightmares again last night. Reviewed that unfortunately they are likely caused by the Wellbutrin, as started prior to initiation of fluoxetine, but he likes the beneficial effects Wellbutrin has had on his mood. He also experienced some hypnopompic hallucinations on awakening this morning after dreaming of a bug and they on initial waking thinking there was a bug on him. Discussed likely a side effect of Ambien causing more grogginess as he woke up. He wants to continue with the Ambien since he falls asleep quickly with it but wonders about other options for the nightmares. Discussed option of prazosin which he would like to try. 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 he identifies that this likely contributed to why he was unmotivated to go to his classes. Physical Exam Psychiatric Orientation: alert and oriented x 3 Apperance: appropriately dressed and appropriately groomed Eye Contact: + fair eye contact Motor Behavior: no abnormal motor movements Speech: normal rate/rhythm/volume of speech Affect: + anxious affect Mood: + anxious mood Thought Process: goal directed thought process and + perseveration Thought Content: reality based without delusions Suicidal Thoughts: denies suicidal thoughts (chronic intermittent but denies any today), denies suicidal plan and denies suicidal intent Homicidal Thoughts: denies homicidal thoughts Hallucinations: no auditory hallucinations and no visual hallucinations Cognition: recent memory grossly intact, remote memory grossly intact, attention grossly intact and language grossly intact Estimated Intelligence: consistent with education level Insight: + fair insight Judgment: + limited judgement Vital Signs (Past 24 Hours) Last Vital Signs Temp 36.5 C 12/05/22 06:32 Pulse 63 12/05/22 06:33 Resp 16 12/05/22 06:32 BP 124/86 12/05/22 06:33 Pulse Ox 99 12/01/22 03:30 O2 Del Method Room Air 12/01/22 03:45 Results & Data ([facility]) Current Inpatient Medications Current Inpatient Medications: Current Inpatient Medications Acetaminophen (Acetaminophen 325 Mg Tab) 650 mg PO Q4H PRN PRN Reason: Headache or Minor Fever Stop: 12/31/22 03:52 Al Hydrox/Mg Hydrox/Simethicone (Aluminum/Magnesium Susp 30 Ml Udc) 30 ml PO Q4H PRN PRN Reason: GI Upset Stop: 12/31/22 03:52 Bismuth Subsalicylate (Bismuth Subsalicylate Liqd 236 Ml) 15 ml PO PRN PRN PRN Reason: Loose Stool Stop: 12/31/22 03:52 Bupropion HCl (Bupropion Xl 150 Mg Tabcr) 150 mg PO QAM LAITH Stop: 01/01/23 09:14 Last Admin: 12/05/22 08:22 Dose: 150 mg Fluoxetine HCl (Fluoxetine Hcl 20 Mg Cap) 20 mg PO QAM LAITH Stop: 01/02/23 08:59 Last Admin: 12/05/22 08:22 Dose: 20 mg Hydroxyzine HCl (Hydroxyzine Hcl 25 Mg Tab) 50 mg PO HSZ PRN PRN Reason: Insomnia Stop: 12/31/22 03:52 Last Admin: 12/04/22 00:48 Dose: 50 mg Hydroxyzine HCl (Hydroxyzine Hcl 25 Mg Tab) 25 mg PO Q4H PRN PRN Reason: Anxiety Stop: 12/31/22 03:52 Magnesium Hydroxide (Magnesium Hydroxide Susp 30 Ml Udc) 30 ml PO DAILY PRN PRN Reason: Constipation Stop: 12/31/22 03:52 Sodium Chloride (Sodium Chloride 0.65% Na Soln 45 Ml ([place])) 1 - 2 sprays NA PRN PRN PRN Reason: Nasal Dryness/Congestion Stop: 12/31/22 03:52 Zolpidem Tartrate (Zolpidem Tartrate 5 Mg Tab) 5 mg PO HS PRN PRN Reason: Sleep Stop: 01/03/23 16:08 Last Admin: 12/04/22 23:22 Dose: 5 mg Mental Health & Subst Abuse Tx Psychiatrist Name of Psychiatrist: [facility] Psychiatrist's Date Of Appointment With Psychiatric Provider: 12/14/2022 Time of Appointment with Psychiatrist: 1:30pm Psychiatric Appointment Comment: [address] [place] [address] Therapist Name of Therapist: SAM Pruett Therapist's Phone Number: [phone] Date of Therapist Appointment: 12/08/2022 Time of Therapist Appointment: Please contact Dr. Pruett to schedule time. Therapy Appointment Comment: [facility], [facility] [address], [place] [address] Compensation Director Name of Compensation Director: None Post Discharge Appointments Primary Care Physician Name Of Family Doctor/PCP: [facility] Primary Care Time of Appointment with PCP: Please follow up as needed Provider Appointment Comment: [facility]
[2022-12-05] MEDS ORDERED: PRAZOSIN HCL 1 MG CAP PO SCH (22:00)
[2022-12-05] MEDS: ZOLPIDEM TARTRATE 5 MG TAB PO PRN (23:10)
[2022-12-06] MEDS: buPROPion XL 150 MG TABCR PO SCH (08:57)
[2022-12-06] MEDS: FLUoxetine HCL 20 MG CAP PO SCH (08:57)
--- NOTE | 2022-12-06 10:11 | Discharge Summary ---
Date of Service December 06, 2022 History of Present Illness Andrea presented to the hospital via police after emailing his psychologist concerning statements regarding suicidal ideation and intent. Apparently the emails he sent stated: "had the most intense day. Can't do it anymore. Having strong urges to kill himself and desperate" and another stating "I need to kill myself". He describes a long history of depression that has worsened over the last few months with anhedonia, decreased motivation, helplessness, hopelessness, decreased energy, increased sleep, and poor concentration. He experiences chronic SI and states if he could "push a button and I would" but expands that "I would love to kill myself but I can't do that to my family and I won't ever". He also describes a lot of ruminations about a past girlfriend who broke up with him three years ago. He feels like until he can move past this he will never feel better. He identifies stressors including not being able to practice Cello enough due to his difficulty getting out of bed in the morning and low motivation and social isolation. He had been prescribed psychiatric medications by his provider in [place] including escitalopram, clonazepam (only uses this about once every 2-3 months for severe anxiety), Ambien and risperidone. However, he stopped these about two weeks ago as he felt they were making him more tired and weren't helping with any of his psychiatric symptoms. He scheduled himself for an upcoming psychiatry appointment at [facility] to try to look into different medication options. Psychiatric ROS notable for no current nor history of symptoms of blayne, psychosis, nor eating disorder. History of self-harm via punching himself in the head. History of body dysmorphia. Physical Exam Vital Signs (Past 24 Hours) Last Vital Signs Temp 36.5 C 12/06/22 06:36 Pulse 90 12/06/22 06:37 Resp 16 12/06/22 06:36 BP 123/81 12/06/22 06:37 Pulse Ox 99 12/01/22 03:30 O2 Del Method Room Air 12/01/22 03:45 See admission H&P and DOD summary. Principal Diagnosis Major Depressive Disorder, recurrent with anxious distress Psychiatric Data See daily stay summary. In short, patient was engaged with the social/therapeutic milieu of the unit, safety was maintained and the patient was cooperative with care. Medication changes included discontinuation of escitalopram and risperidone and initiation of Wellbutrin for major depression, addition of fluoxetine for anxiety and prominent obsessions/ruminations and prazosin for nightmares. Unfortunately even after trying multiple sedating medications at bedtime he continued to have insomnia and requested to go back on his prior to admission Melinda. His sleep remained intermittent largely due to overnight awakenings and at times nightmares. After addition of prazosin he continued to have vivid dreams but no further nightmares. Reviewed option of reducing Wellbutrin dose to SR or discontinuing this but he found this very helpful for his mood, motivation and energy levels. Even with his poor sleep he continued to desire discharge stating his mood had significantly improved and expressing appreciation for learning new coping skills. Discussed his history of nasal congestion and long history of insomnia and recommended he follow-up with [facility] to determine if there may be any other factors negatively impacting his sleep and/or if a sleep medicine referral/workup for RAMA would be appropriate if chronic insomnia persists. He declined a support session. Safety plan was completed prior to discharge. Scripts for his new medications were sent to the pharmacy, he requested that a new script for Ambien not be sent as he has this available from a previous script. He actively and insightfully participated in safety planning and in discussions about ways to seek support and recognizing warning signs and utilizing coping skills. He has experienced periods of chronic intermittent suicidal ideation throughout his life and discussed recommendation to consider therapy with DBT focus to if these thoughts re-occur. Reviewed importance of seeking emergency care should SI intensify, worsen or should they feel unsafe in the future which they agree to do. On the day of discharge he stated his mood was "tired but good, I learned a lot of helpful skills and I want to go today, I'm ready and feel optimistic" and remained future-oriented including getting his cellphone fixed at the downtown [employer] store, calling his mother, playing cello and relaxing and engaging in aftercare appointments for psychiatry and therapy. Day of Discharge Assessment Today the patient voices readiness for discharge. They note improvement in mood and anxiety. They deny thoughts of harm to self or others. Thoughts are organized and they are clinically improved from admission. There is no evidence of psychosis. They improved in the hospital with support and medication adjustments. They agree to take medications as prescribed and keep follow-up appointments. At the time of the discharge they are deemed to be stable and appropriate for outpatient level of care. They are not deemed to be at imminent risk of harm to self or others. They are aware of emergency and crisis services. Knows to call 911 or go to nearest emergency care center if in a crisis which cannot be handled as an outpatient. Transition of Care Transition Of Care Record: was reviewed with the patient Advance Directives Advance Directives Information Provided: Yes Advance Directives: No Mental Health Advance Directive: No Advance Directives on File: No Living Will: No Power of Head Of Mobile: No Advance Directives Reason:: Declines as Mental Health Visit. Suicide Risk Level Suicide Risk Level Comments: Acute risk is low given improvement in mood and denial of SI, lack of access to lethal means, hopefulness. Chronic risk is moderate given multiple non- modifiable risk factors: psychiatric co-morbid diagnoses, periods of impulsivity, emotional reactivity, poor social support, childhood trauma, family history of by suicide but also with protective factors including: employed/student, sense of responsibility to family and social supports, outpatient care in place, positive coping skills, positive problem solving, capacity to establish therapeutic alliance, willingness to engage with treatment, and capacity for self-observation. Counseled on ways to reduce acute and chronic risk including engaging with outpatient providers, using safety plan if needed, utilizing supports, taking medication, and using coping skills. Modifiable risk factors of SI and depression were addressed during hospitalization through development of new coping skills, safety planning, and medication adjustments. Risk Factors Assessment Male: Yes : No Do You Have Access To A Gun?: No Health Problems: No Mental Health Diagnoses: Yes Substance Use Disorders: No Previous Attempt: No Family History of Suicide: Yes Previous Psychiatric Hospitalization: No Hopelessness: No Protective Factors Assessment Employed: No Stable Relationships: Yes Supportive Family: Yes Good Rapport with Provider: Yes Discharge Data Lab Results 11/30/22 11/30/22 11/30/22 21:28 21:28 21:28 WBC 7.30 RBC 5.45 Hgb 16.0 Hct 45.0 MCV 82.6 MCH 29.4 MCHC 35.6 RDW Std Deviation 36.3 L RDW Coeff of Deepak 12.1 Plt Count 246 MPV 10.1 Immature Gran % (Auto) 0.4 Neut % (Auto) 61.0 Lymph % (Auto) 28.4 [place] % (Auto) 8.6 Eos % (Auto) 1.2 Baso % (Auto) 0.4 Neut # (Auto) 4.45 Lymph # (Auto) 2.07 [place] # (Auto) 0.63 H Eos # (Auto) 0.09 Baso # (Auto) 0.03 Immature Gran # (Auto) 0.03 Sodium 139 Potassium 4.1 Chloride 106 Carbon Dioxide 27 Anion Gap 6 BUN 12 Creatinine 0.85 Est Cr Clr Drug Dosing 126.8 Est GFR ( Amer) 141.3 Est GFR (Non-Af Amer) 122.0 BUN/Creatinine Ratio 14.1 Glucose 119 H Calcium 9.1 Total Bilirubin 0.4 AST 28 ALT 23 Alkaline Phosphatase 96 Total Protein 6.7 Albumin 4.3 Globulin 2.4 L Albumin/Globulin Ratio 1.8 TSH 3.823 Urine Color Urine Appearance Urine pH Ur Specific [place] Urine Protein Urine Glucose (UA) Urine Ketones Urine Blood Urine Nitrite Urine Bilirubin Urine Urobilinogen Ur Leukocyte Esterase Salicylates Urine Opiates Screen Ur Methadone, Qual Acetaminophen Urine Barbiturates Ur Phencyclidine (PCP) U Amphetamin/Meth Scrn MDMA (Ecstasy) Screen U Benzodiazepines Scrn Ur Cocaine Metabolite U Marijuana (THC) Screen Ethyl Alcohol mg/dL SARS-CoV-2, RNA, NAAT 11/30/22 11/30/22 11/30/22 21:28 21:28 21:28 WBC RBC Hgb Hct MCV MCH MCHC RDW Std Deviation RDW Coeff of Deepak Plt Count MPV Immature Gran % (Auto) Neut % (Auto) Lymph % (Auto) [place] % (Auto) Eos % (Auto) Baso % (Auto) Neut # (Auto) Lymph # (Auto) [place] # (Auto) Eos # (Auto) Baso # (Auto) Immature Gran # (Auto) Sodium Potassium Chloride Carbon Dioxide Anion Gap BUN Creatinine Est Cr Clr Drug Dosing Est GFR ( Amer) Est GFR (Non-Af Amer) BUN/Creatinine Ratio Glucose Calcium Total Bilirubin AST ALT Alkaline Phosphatase Total Protein Albumin Globulin Albumin/Globulin Ratio TSH Urine Color Urine Appearance Urine pH Ur Specific [place] Urine Protein Urine Glucose (UA) Urine Ketones Urine Blood Urine Nitrite Urine Bilirubin Urine Urobilinogen Ur Leukocyte Esterase Salicylates < 3.0 L Urine Opiates Screen Ur Methadone, Qual Acetaminophen < 3 L Urine Barbiturates Ur Phencyclidine (PCP) U Amphetamin/Meth Scrn MDMA (Ecstasy) Screen U Benzodiazepines Scrn Ur Cocaine Metabolite U Marijuana (THC) Screen Ethyl Alcohol mg/dL < 10.0 SARS-CoV-2, RNA, NAAT NEGATIVE 11/30/22 11/30/22 22:38 22:38 WBC RBC Hgb Hct MCV MCH MCHC RDW Std Deviation RDW Coeff of Deepak Plt Count MPV Immature Gran % (Auto) Neut % (Auto) Lymph % (Auto) [place] % (Auto) Eos % (Auto) Baso % (Auto) Neut # (Auto) Lymph # (Auto) [place] # (Auto) Eos # (Auto) Baso # (Auto) Immature Gran # (Auto) Sodium Potassium Chloride Carbon Dioxide Anion Gap BUN Creatinine Est Cr Clr Drug Dosing Est GFR ( Amer) Est GFR (Non-Af Amer) BUN/Creatinine Ratio Glucose Calcium Total Bilirubin AST ALT Alkaline Phosphatase Total Protein Albumin Globulin Albumin/Globulin Ratio TSH Urine Color Yellow Urine Appearance Clear Urine pH 8.5 H Ur Specific [place] 1.014 Urine Protein Negative Urine Glucose (UA) Negative Urine Ketones Negative Urine Blood Negative Urine Nitrite Negative Urine Bilirubin Negative Urine Urobilinogen Negative Ur Leukocyte Esterase Negative Salicylates Urine Opiates Screen Neg Ur Methadone, Qual Neg Acetaminophen Urine Barbiturates Neg Ur Phencyclidine (PCP) Neg U Amphetamin/Meth Scrn Neg MDMA (Ecstasy) Screen Neg U Benzodiazepines Scrn Neg Ur Cocaine Metabolite Neg U Marijuana (THC) Screen Neg Ethyl Alcohol mg/dL SARS-CoV-2, RNA, NAAT Hospital Course (1) Recurrent severe major depressive disorder with anxiety: (2) Suicidal ideation: (3) Insomnia: (4) Mixed obsessional thoughts and acts: Plan 12/05/2022: Start prazosin 1mg HS. Continue with Wellbutrin, fluoxetine and Ambien. 12/04/2022: Discontinue trazodone. Start Ambien 5mg HS prn. Continue Wellbutrin XL and fluoxetine. 12/03/2022: Start trazodone 50mg HS, continue Wellbutrin XL 150mg qd and started fluoxetine 20mg qd 12/02/2022: Continue Wellbutrin XL 150mg qd, start fluoxetine 20mg tomorrow morning, he will utilize Vistaril prn for insomnia as this was helpful last night 12/01/2022: The patient was admitted to the [facility]) on q15 min checks (behavioral with suicide precautions) for safety. The patient will participate in group, recreational, and milieu therapies and will be offered additional individual and family sessions as clinically appropriate. -Start Wellbutrin XL 150mg qd tomorrow Mental Health & Subst Abuse Tx Psychiatrist Name of Psychiatrist: Elpid[facility] Psychiatrist's Date Of Appointment With Psychiatric Provider: 12/14/2022 Time of Appointment with Psychiatrist: 1:30pm Psychiatric Appointment Comment: [address] [place] [address] Psychiatrist Release of Information: Obtained, Reviewed and Signed Therapist Name of Therapist: SAM Buckner Therapist's Date of Therapist Appointment: 12/08/2022 Time of Therapist Appointment: 11:00 AM Therapy Appointment Comment: Please check email for Zoom link. Therapist Release of Information: Obtained, Reviewed and Signed Musical Instruments Assembler Name of Musical Instruments Assembler: None Post Discharge Appointments Primary Care Physician Name Of Family Doctor/PCP: [facility] Primary Care Time of Appointment with PCP: Please follow up as needed Provider Appointment Comment: [facility] Contact Information [facility] [address] Discharge Plan Discharge Items Patient Disposition: Home - Self-Care Reason For Visit: UNSPECIFIED DEPRESSIVE DISORDER Discharge Diagnosis: Major Depressive Disorder, recurrent with anxious distress Condition on Discharge: Good Activity: Resume your previous activity Non-emergency contact: Primary Care Provider, Psychiatrist and Therapist Call non-emergency contact if: you have any medication questions and your sympt oms worsen Follow-up/Referrals: MINAL BUCKNER [Other] Diet: Regular Addtl Attending Provider Instructions: SPECIAL CARE INSTRUCTIONS: 1. Follow through with your scheduled aftercare appointments. If unable to keep an appointment, please call to reschedule. 2. Take your medication only as prescribed. Medication should not be changed or stopped without the approval of your doctor. In the event of worsening symptoms or concerns about side effects, contact your doctor immediately. 3. Utilize new healthy coping skills, anger management skills, and stress management skills learned during your hospitalization. Journal feelings and process them with a support person. Identify stressors or situations that may result in relapse, deterioration or inappropriate behaviors and develop a plan to deal with those issues. 4. If your coping skills are ineffective and you are in crisis, contact your outpatient providers for direction. If unable to reach your providers, please call the [facility] CRISIS LINE AT , go to the [facility] walk-in center at [address], [address], [place], or go to the closest Emergency Room. 5. Avoid alcohol and un-prescribed drugs. 6. You have been provided with the Mental Health Advance Directives Pamphlet for your review. 7. Your condition is stable for discharge to outpatient level of care, but recovery is an ongoing process. Ifthoughts to harm yourself or others return, follow the safety plan developed during your stay. Planning for a safe return home includes securing weapons. Our treatment team recommends weaponsbe removed from the home until your outpatient provider reassesses your progress. In rare cases where the items themselvescannot be removed, guns and ammunitionshould be secured separatelyand keys stored by a reliable personoutside of the home. If you were admitted on an involuntary commitment, the police or other legal authorities may be involved in this process. AFTERCARE APPOINTMENTS: * Please call your insurance company prior to your scheduled appointment to confirm your aftercare providers are covered. Take your insurance information to your appointments. WHO TO CALL AND WHEN: Medical Emergencies: For questions or emergencies related to your hospital stay, please contact the Inpatient Behavioral Health Unit at [phone]. A grape cutter is on-call 06/02 for the Behavioral Health Unit for emergencies National Crisis Line: 244 At any time you feel your situation is an emergency, you may also call 911 immediately. Pending Studies at Discharge: No Stand-Alone Forms: My [facility] Medications and DC Order Prescriptions: New prazosin 1 mg Capsule 1 mg PO HS 30 Days Qty: 30 0RF zolpidem 5 mg Tablet 5 mg PO HS PRN (Reason: insomnia) Qty: 1 0RF fluoxetine 20 mg Capsule 20 mg PO QAM 30 Days Qty: 30 0RF bupropion HCl 150 mg Tablet Extended Release 24 Hr 150 mg PO QAM 30 Days Qty: 30 0RF Discharge Orders: Discharge Order (Routine); Ordered 12/06/22 Ordered By: Yulissa Montano Admission Data Admit Date/Time: 12/01/22 02:26 Attending Provider: Yulissa Montano Admit Provider: Yulissa Montano Primary Care Provider: MINAL BUCKNER Other Interventions: Discharge Summary Assessment (RN) Last Done: 12/06/22 11:36 PSY Interdisciplinary Discharge Planning Last Done: 12/06/22 11:36 Coding Level of Care Code 58882 D/C day mgmt > 30 min Diagnoses Recurrent severe major depressive disorder with anxiety F33.2; F41.9 Suicidal ideation R45.851 Insomnia G47.00 Mixed obsessional thoughts and acts F42.2 Time Spent (min) 55
== END 2022-12-06 11:54 | disposition home or self-care (01) | DRG 885 ==
LOC: ED 20:41 → 3S 12-01 02:26
DX: F33.2 Major depressive disorder, recurrent severe without psychotic features; F41.9 Anxiety disorder, unspecified; R45.851 Suicidal ideations; G47.00 Insomnia, unspecified; F42.2 Mixed obsessional thoughts and acts; Z91.128 Patient's intentional underdosing of medication regimen for other reason